=== PATIENT | female | born 1960 | race Caucasian/White ===

== ENCOUNTER → 2016-07-30 | Outpatient (CLI) | payer BC ==
--- NOTE | 2016-07-30 12:48 | DI ---
XR FOOT COMPLETE MIN 3VW WB,07/30/2016 9:05 AM: Clinical History: Acquired hallux valgus of the left foot. Previous Exam: None at this facility. Findings: 3 views of the right foot are obtained, and demonstrate a hallux varus deformity the right first meta tarsal phalangeal joint. This measures 27?. The surrounding soft tissues are unremarkable except for some degenerative changes of the tarsometata rsal joints. Impression: Hallux valgus deformity. Degenerative changes of the tarsometatarsal joints.
== END ==
LOC: MOB RAD 09:14
PROVIDERS: ATTEND Podiatrist Foot & Ankle Surgery
DX: M20.11 Hallux valgus (acquired), right foot (principal); M19.071 Primary osteoarthritis, right ankle and foot; M79.671 Pain in right foot; M20.12 Hallux valgus (acquired), left foot
CPT/HCPCS: 73630

== ENCOUNTER → 2016-10-28 | Outpatient (CLI) | payer BC ==
--- NOTE | 2016-10-28 16:26 | DI ---
History: Low back pain and lower extremity paresthesia Comparison: February 03, 2014 Findings: Intervertebral disc space narrowing at L1 to the sacrum, unchanged as compared to the previous study. 4 mm anterolisthesis L3 on L4 unchanged as compared to the previous study. The degree of spondylolist hesis is fixed in flexion, and extension. Anterior superior endplate Schmorl's node L3, unchanged. SI joints unremarkable. Impression Extensive degenerative changes throughout the lumbar spine, including degenerative disc changes and i ntervertebral disc space narrowing. 4 mm anterolisthesis L3 on L4, fixed in flexion and extension.
--- NOTE | 2016-10-28 16:45 | DI ---
History: Low back pain with lower extremity paresthesia Comparison: March 14, 2014 Intervertebral disc space narrowing L1 to the sacrum. T11-12: No stenosis or foraminal narrowing T12-L1: No stenosis or foraminal narrowing. Very mild degenerative change of the facet joints L1-2: Broad-based posterior disc bulge, and mild degenerative changes in the facet joints results in mild focal spinal stenosis, and mild neural foraminal narrowing L2-3: Right posterior disc herniation measuring roughly by 0.8 x 1.1 cm. There is no sequestered frag ment. There is subsequent moderate to severe focal spinal stenosis. There is also mild to moderate ri ght neural foraminal narrowing at this level secondary to hypertrophic degenerative changes and facet joint in combination with the disc protrusion. These findings have not changed significantly as comp ared with the MRI performed on March 14, 2014. L3-4 broad-based posterior disc bulge, ligamentous hypertrophy, and moderate to severe bilateral face t hypertrophy.. Combination of these findings results in severe left and moderate right neural forami nal narrowing, and severe focal spinal stenosis. These findings have not changed significantly as com pared to the MRI of March 14, 2014. L4-5 broad-based posterior disc bulge. Moderate to severe bilateral hypertrophic degenerative changes in the facet joints. Mild ligamentous hypertrophy. These changes result in moderate bilateral neural foraminal narrowing, and moderate to severe focal spinal stenosis. These findings have not changed s ignificantly as compared with the MRI of the March 14, 2014. L5-S1 broad-based disc bulge impressing upon the thecal sac. Moderate to severe degenerative changes in the facet joints. These changes result in moderate bilateral neural foraminal narrowing at this le dominick. No spinal stenosis at this level. Findings have not changed significantly as compared MRI of Feb. Impression Severe degenerative changes and posterior disc bulge/osteophyte complexes resulting in varying degree s of neural foraminal narrowing, spinal stenosis at multiple levels. Direct comparison with an MRI pe rformed on March 14, 2014 demonstrates no significant changes
== END ==
LOC: MRI 10:37
PROVIDERS: ATTEND Chiropractor
DX: M54.5 Low back pain (principal); M47.26 Other spondylosis with radiculopathy, lumbar region; M47.27 Other spondylosis with radiculopathy, lumbosacral region
CPT/HCPCS: 72110; 72148